=== PATIENT | male | born 1940 | race Caucasian/White ===

== ENCOUNTER 2017-06-11 07:56 | Day surgery (SDC) | payer OTHER ==
[2017-06-11] MEDS ORDERED: D5 LR 1000 ML 1,000 ML IV ONE (08:02)
[2017-06-11] MEDS ORDERED: DIPRIVAN VIAL 20 ML ONE (08:45)
[2017-06-11 10:17] VITALS: BP 100/60
== END 2017-06-11 09:30 | disposition home or self-care (01) ==
LOC: SURG1 07:56
PROVIDERS: ATTEND Internal Medicine Gastroenterology
PROC: 0DJ08ZZ Inspection of Upper Intestinal Tract, Via Natural or Artificial Opening Endoscopic (ICD-10-PCS; principal; 2017-06-11 10:30)
PROC: 0D757ZZ Dilation of Esophagus, Via Natural or Artificial Opening (ICD-10-PCS; principal; 2017-06-11 10:30)
PROC: 0DB88ZX Excision of Small Intestine, Via Natural or Artificial Opening Endoscopic, Diagnostic (ICD-10-PCS; principal; 2017-06-11 10:30)
PROC: 0DB68ZX Excision of Stomach, Via Natural or Artificial Opening Endoscopic, Diagnostic (ICD-10-PCS; principal; 2017-06-11 10:30)
DX: R13.19 Other dysphagia (principal); R10.13 Epigastric pain; K21.9 Gastro-esophageal reflux disease without esophagitis; R11.0 Nausea; K29.60 Other gastritis without bleeding; K22.4 Dyskinesia of esophagus; K22.2 Esophageal obstruction; R93.3 Abnormal findings on diagnostic imaging of other parts of digestive tract
CPT/HCPCS: A4217; J3490; J7120